=== PATIENT | male | born 1950 | race Asian ===

== ENCOUNTER 2020-08-28 09:08 | Inpatient (IN) | payer OTHER ==
[2020-08-28] MEDS ORDERED: methylPREDNISolone NA SUCC 125 MG/2 ML VIAL IVPUSH ONE (09:35)
[2020-08-28] MEDS ORDERED: SODIUM CHLORIDE 1,000 ML IV STA (09:39)
[2020-08-28 10:49] LABS: BASO % 1.4 % (0-2.0); EOS % 0.2 % (0-4.5); HEMATOCRIT 18.8 % (35.4-49); LYMPH % 18.9 % (8-40); MCH 31.8 pg (25.7-33.7); MCHC 34.3 g/dl (32.0-35.9); MEAN CELL VOLUME 92.7 fl (80-96); MEAN PLT VOLUME 8.7 fl (7.5-11.1); MONO % 26.5 % (3.8-10.2); PLATELET COUNT 51 K/MM3 (134-434); RBC 2.03 M/mm3 (4.00-5.60); RDW 19.7 % (11.9-15.9); WHITE BLOOD COUNT 4.7 K/mm3 (4.0-10.0)
[2020-08-28 10:52] LABS: INR 1.16 (0.83-1.09)
[2020-08-28 10:55] LABS: ACTIVATED PTT 30.9 SECONDS (25.2-36.5)
[2020-08-28 11:08] LABS: CALCIUM 7.9 mg/dL (8.5-10.1)
[2020-08-28 11:10] LABS: ALBUMIN 2.3 g/dl (3.4-5.0)
[2020-08-28 11:11] LABS: HEMOGLOBIN 6.4 GM/dL (11.7-16.9)
[2020-08-28 11:13] LABS: BILIRUBIN,TOTAL 0.9 mg/dL (0.2-1); TOT PROT 5.9 g/dl (6.4-8.2)
[2020-08-28 11:16] LABS: N-TERMINAL BNP 2303.6 pg/ml (5-125)
[2020-08-28] MEDS ORDERED: methylPREDNISolone NA SUCC 125 MG/2 ML VIAL ONE (13:32)
[2020-08-28 16:28] LABS: PH,URINE 5.5 (5.0-8.0); URINE APPEARANCE CLEAR; URINE BILIRUBIN NEGATIVE (NEGATIVE); URINE COLOR YELLOW; URINE GLUCOSE (UA) NEGATIVE (NEGATIVE); URINE KETONE 1+ (NEGATIVE); URINE LEUK ESTERASE NEGATIVE (NEGATIVE); URINE NITRITE NEGATIVE (NEGATIVE); URINE PROTEIN NEGATIVE (NEGATIVE); URINE UROBILINOGEN 0.2 mg/dL (0.2-1.0)
[2020-08-28] MEDS ORDERED: SODIUM CHLORIDE 1,000 ML IV SCH (17:45)
[2020-08-28] MEDS ORDERED: PANTOPRAZOLE 40 MG TABLET ONE (22:26)
[2020-08-28] MEDS: PANTOPRAZOLE 40 MG TABLET PO SCH (22:27)
[2020-08-29 08:09] LABS: ALBUMIN 2.4 g/dl (3.4-5.0); BILIRUBIN,TOTAL 1.4 mg/dl (0.2-1); CALCIUM 7.7 mg/dl (8.5-10); CREATININE 0.9 mg/dl (0.55-1.3); MAGNESIUM 1.8 mg/dL (1.8-2.4); PHOSPHOROUS 5.6 mg/dl (2.5-4.9); TOT PROT 5.7 g/dl (6.4-8.2)
[2020-08-29 08:19] LABS: BASO % 0.1 % (0-2.0); EOS % 0.1 % (0-4.5); HEMATOCRIT 28.5 % (35.4-49); HEMOGLOBIN 9.6 GM/dl (11.7-16.9); LYMPH % 9.9 % (8-40); MCH 31.3 pg (25.7-33.7); MCHC 33.9 g/dl (32.0-35.9); MEAN CELL VOLUME 92.3 fl (80-96); MEAN PLT VOLUME 9.2 fl (7.5-11.1); MONO % 17.8 % (3.8-10.2); NEUT % 72.1 % (42.8-82.8); PLATELET COUNT 44 K/MM3 (134-434); RBC 3.08 M/mm3 (4.00-5.60); RDW 20.3 % (11.9-15.9); WHITE BLOOD COUNT 4.7 K/mm3 (4.0-10.8)
[2020-08-29] MEDS ORDERED: FUROSEMIDE 40 MG/4 ML INJECTABLE VIAL IVPUSH ONE (09:45)
[2020-08-29] MEDS: PANTOPRAZOLE 40 MG TABLET PO SCH (10:12)
[2020-08-29 10:23] LABS: RETICULOCYTES 2.73 % (0.5-1.5)
[2020-08-29] MEDS ORDERED: RIVAROXABAN 20 MG TABLET PO SCH (10:30)
[2020-08-29 11:24] LABS: ANISOCYTOSIS 2+; MACROCYTOSIS 0; PLATELET ESTIMATE DECREASED
[2020-08-29] MEDS ORDERED: PT OWN MED DRAWER 7, Y5N ONE (12:03)
[2020-08-29] MEDS: BUDESONIDE/FORMETEROL FUMARATE 160/4.5 mcg INHALER IH SCH ×2 (12:08→21:36)
[2020-08-29] MEDS: PANTOPRAZOLE SODIUM 40 MG VIAL IVPUSH SCH (12:08)
[2020-08-29] MEDS: TAMSULOSIN HCL 0.4 MG CAP PO SCH (12:08)
[2020-08-29] MEDS: TIOTROPIUM BROMIDE 2.5 MCG (SPIRIVA) RESPIMAT INHALER IH SCH (12:08)
[2020-08-29] MEDS: CARVEDILOL 12.5 MG TABLET (FP) PO SCH ×2 (12:09→21:36)
[2020-08-29] MEDS ORDERED: DICLOFENAC POTASSIUM PO SCH (14:00)
[2020-08-29] MEDS: FLUTICASONE PROP 0.05% 16 GM NASAL SPRAY NS SCH (17:19)
[2020-08-29] MEDS: ATORVASTATIN CA 20 MG TABLET (FP) PO SCH (21:36)
[2020-08-29] MEDS ORDERED: SODIUM CHLORIDE 250 ML IV STA (23:26)
[2020-08-30] MEDS: traMADol HCL 50 MG TABLET PO PRN ×3 (01:57→21:02)
[2020-08-30] MEDS ORDERED: PT OWN MED DRAWER 7, Y5N ONE ×2 (09:23→12:46)
[2020-08-30] MEDS: CARVEDILOL 12.5 MG TABLET (FP) PO SCH ×3 (09:47→21:46)
[2020-08-30] MEDS: TAMSULOSIN HCL 0.4 MG CAP PO SCH (09:50)
[2020-08-30] MEDS ORDERED: PANTOPRAZOLE 40 MG TABLET PO SCH (10:00)
[2020-08-30] MEDS: PANTOPRAZOLE SODIUM 40 MG VIAL IVPUSH SCH (11:11)
[2020-08-30] MEDS: FLUTICASONE PROP 0.05% 16 GM NASAL SPRAY NS SCH (12:50)
[2020-08-30] MEDS: BUDESONIDE/FORMETEROL FUMARATE 160/4.5 mcg INHALER IH SCH ×2 (12:51→21:15)
[2020-08-30] MEDS: TIOTROPIUM BROMIDE 2.5 MCG (SPIRIVA) RESPIMAT INHALER IH SCH (12:51)
[2020-08-30] MEDS: ATORVASTATIN CA 20 MG TABLET (FP) PO SCH (21:02)
[2020-08-31] MEDS ORDERED: SODIUM CHLORIDE 1,000 ML IV STA (05:27)
[2020-08-31 06:34] LABS: BASO % 0.7 % (0-2.0); EOS % 0.3 % (0-4.5); HEMATOCRIT 25.9 % (35.4-49); HEMOGLOBIN 8.7 GM/dL (11.7-16.9); LYMPH % 20.8 % (8-40); MCH 31.1 pg (25.7-33.7); MCHC 33.7 g/dl (32.0-35.9); MEAN CELL VOLUME 92.1 fl (80-96); MEAN PLT VOLUME 9.1 fl (7.5-11.1); NEUT % 54.2 % (42.8-82.8); RBC 2.81 M/mm3 (4.00-5.60); RDW 21.6 % (11.9-15.9)
[2020-08-31 06:59] LABS: ALBUMIN 2.2 g/dl (3.4-5.0); BLOOD UREA NITROGEN 16.8 mg/dL (7-18); CALCIUM 7.3 mg/dL (8.5-10.1)
[2020-08-31 07:00] LABS: MAGNESIUM 1.8 mg/dL (1.8-2.4)
[2020-08-31 07:03] LABS: CREATININE 0.8 mg/dL (0.55-1.3)
[2020-08-31 07:04] LABS: BILIRUBIN,TOTAL 1.4 mg/dL (0.2-1); TOT PROT 5.4 g/dl (6.4-8.2)
[2020-08-31] MEDS: TAMSULOSIN HCL 0.4 MG CAP PO SCH (08:18)
[2020-08-31 10:37] LABS: ANISOCYTOSIS 0; MACROCYTOSIS 0; PLATELET ESTIMATE DECREASED; ROULEAU 1+
[2020-08-31] MEDS: CARVEDILOL 12.5 MG TABLET (FP) PO SCH ×2 (11:17→23:21)
[2020-08-31] MEDS: traMADol HCL 50 MG TABLET PO PRN (11:18)
[2020-08-31] MEDS: FLUTICASONE PROP 0.05% 16 GM NASAL SPRAY NS SCH (11:18)
[2020-08-31] MEDS: PANTOPRAZOLE SODIUM 40 MG VIAL IVPUSH SCH (11:18)
[2020-08-31] MEDS: BUDESONIDE/FORMETEROL FUMARATE 160/4.5 mcg INHALER IH SCH ×2 (11:18→23:22)
[2020-08-31] MEDS: TIOTROPIUM BROMIDE 2.5 MCG (SPIRIVA) RESPIMAT INHALER IH SCH (11:18)
[2020-08-31] MEDS: ACETAMINOPHEN 325 MG TABLET (FP) PO PRN (11:19)
[2020-08-31 11:55] LABS: PLATELET COUNT 27 K/MM3 (134-434)
[2020-08-31] MEDS ORDERED: KCL 10 MEQ IVPB 10 MEQ/100 ML INFUS.BAG IVPB SCH (12:15)
[2020-08-31] MEDS ORDERED: SODIUM CHLORIDE 500 ML IV STA (17:31)
[2020-08-31] MEDS: AMINO ACIDS 4.25%/D5W 1,000 ML IV SCH (19:45)
[2020-08-31] MEDS: ALLOPURINOL 300 MG TABLET (FP) PO SCH (19:46)
[2020-08-31] MEDS ORDERED: ACETAMINOPHEN 325 MG TABLET (FP) PO ONE (22:26)
[2020-08-31] MEDS: ATORVASTATIN CA 20 MG TABLET (FP) PO SCH (23:21)
[2020-09-01] MEDS ORDERED: SODIUM CHLORIDE 500 ML IV STA ×3 (02:02→09:16)
[2020-09-01 02:55] LABS: URINE APPEARANCE CLEAR; URINE BILIRUBIN SMALL (NEGATIVE); URINE COLOR DK YELLOW; URINE GLUCOSE (UA) NEGATIVE (NEGATIVE); URINE KETONE NEGATIVE (NEGATIVE)
[2020-09-01 02:56] LABS: PH,URINE 5.5 (5.0-8.0); URINE LEUK ESTERASE NEGATIVE (NEGATIVE); URINE NITRITE NEGATIVE (NEGATIVE); URINE PROTEIN TRACE (NEGATIVE); URINE RBC 9 /uL (0-23.9)
[2020-09-01 02:57] LABS: EPI CELLS 6 /uL (0-25.1); HYALINE CASTS 1 /uL (0-3.1); URINE BACTERIA 3 /uL (0-1359); URINE WBC 7 /uL (0-25.8)
[2020-09-01] MEDS ORDERED: SODIUM CHLORIDE 1,000 ML IV SCH (03:45)
[2020-09-01 04:45] LABS: BASO % 0.8 % (0-2.0); EOS % 0.2 % (0-4.5); HEMATOCRIT 22.4 % (35.4-49); HEMOGLOBIN 7.5 GM/dL (11.7-16.9); LYMPH % 19.7 % (8-40); MCH 31.1 pg (25.7-33.7); MCHC 33.6 g/dl (32.0-35.9); MEAN CELL VOLUME 92.7 fl (80-96); MEAN PLT VOLUME 9.5 fl (7.5-11.1); MONO % 24.2 % (3.8-10.2); NEUT % 55.1 % (42.8-82.8); RBC 2.42 M/mm3 (4.00-5.60); RDW 21.3 % (11.9-15.9); WHITE BLOOD COUNT 3.7 K/mm3 (4.0-10.0)
[2020-09-01 05:03] LABS: CHLORIDE 107 mmol/L (98-107); SODIUM 138 mmol/L (136-145)
[2020-09-01 05:05] LABS: PLATELET COUNT 22 K/MM3 (134-434)
[2020-09-01 05:06] LABS: ALBUMIN 1.9 g/dl (3.4-5.0); ANION GAP 6 MMOL/L (8-16); BLOOD UREA NITROGEN 17.7 mg/dL (7-18); CO2 26 mmol/L (21-32); GLUCOSE,RANDOM 130 mg/dL (74-106); MAGNESIUM 1.6 mg/dL (1.8-2.4)
[2020-09-01 05:09] LABS: CREATININE 0.8 mg/dL (0.55-1.3); SGOT/AST 143 U/L (15-37); SGPT/ALT 75 U/L (13-61); URIC ACID 4.6 mg/dL (2.6-7.2)
[2020-09-01 05:11] LABS: BILIRUBIN,TOTAL 1.3 mg/dL (0.2-1); TOT PROT 4.8 g/dl (6.4-8.2)
[2020-09-01 05:13] LABS: LDH 844 U/L (87-246)
[2020-09-01] MEDS ORDERED: POTASSIUM CHLORIDE TABS 20 MEQ TABLET.ER (FP) PO ONE (05:26)
[2020-09-01] MEDS ORDERED: MAGNESIUM OXIDE 400 MG TABLET (FP) PO ONE (05:26)
[2020-09-01] MEDS: ACETAMINOPHEN 325 MG TABLET (FP) PO PRN (06:26)
[2020-09-01 07:21] LABS: ALK PHOS 161 U/L (45-117)
[2020-09-01] MEDS ORDERED: VARENICLINE TARTRATE 1 MG TAB PO SCH (07:49)
[2020-09-01] MEDS ORDERED: ACETAMINOPHEN 325 MG TABLET (FP) PO PRN (07:49)
[2020-09-01 08:00] LABS: CALCIUM 6.8 mg/dL (8.5-10.1)
[2020-09-01 09:09] LABS: ANISOCYTOSIS 1+; MACROCYTOSIS 0; PLATELET ESTIMATE DECREASED
[2020-09-01] MEDS: TAMSULOSIN HCL 0.4 MG CAP PO SCH (09:18)
[2020-09-01] MEDS: PANTOPRAZOLE SODIUM 40 MG VIAL IVPUSH SCH (09:18)
[2020-09-01] MEDS: ALLOPURINOL 300 MG TABLET (FP) PO SCH (09:18)
[2020-09-01] MEDS ORDERED: CARVEDILOL 12.5 MG TABLET (FP) PO SCH (10:00)
[2020-09-01] MEDS: TIOTROPIUM BROMIDE 2.5 MCG (SPIRIVA) RESPIMAT INHALER IH SCH (10:06)
[2020-09-01] MEDS: FLUTICASONE PROP 0.05% 16 GM NASAL SPRAY NS SCH (10:06)
[2020-09-01] MEDS: BUDESONIDE/FORMETEROL FUMARATE 160/4.5 mcg INHALER IH SCH ×2 (10:07→21:29)
[2020-09-01] MEDS: CARVEDILOL 12.5 MG TABLET (FP) PO SCH ×2 (11:13→21:15)
[2020-09-01] MEDS ORDERED: VANCOMYCIN 1 GRAM (PRE-DOCKED) 1,000 MG/250 ML BAG IVPB ONE (12:30)
[2020-09-01] MEDS ORDERED: DEXTROSE 5%-WATER - 50 ML IVPB ONE (13:16)
[2020-09-01] MEDS ORDERED: PIPERACILLIN/TAZOBACTAM 3.375 GM VIAL IVPB ONE (13:16)
[2020-09-01] MEDS ORDERED: ACETAMINOPHEN 500 MG TABLET (FP) PO PRN (14:52)
[2020-09-01] MEDS ORDERED: ACETAMINOPHEN 500 MG TABLET (FP) PO ONE (15:18)
[2020-09-01] MEDS: PIPERACILLIN/TAZOB 3.375 GM 3.375 GM in DEXTROSE 5%-WATER - 50 ML IVPB SCH ×2 (15:25→18:20)
[2020-09-01] MEDS ORDERED: PANTOPRAZOLE SODIUM 40 MG in SODIUM CHLORIDE 100 ML IVPB SCH (15:45)
[2020-09-01] MEDS: AMINO ACIDS 4.25%/D5W 1,000 ML IV SCH (20:00)
[2020-09-01] MEDS: ATORVASTATIN CA 20 MG TABLET (FP) PO SCH (21:26)
[2020-09-02] MEDS ORDERED: PIPERACILLIN/TAZOBACTAM 3.375 GM VIAL IVPB ONE ×4 (02:02→23:48)
[2020-09-02] MEDS ORDERED: DEXTROSE 5%-WATER - 50 ML IVPB ONE ×4 (02:02→23:48)
[2020-09-02] MEDS: PIPERACILLIN/TAZOB 3.375 GM 3.375 GM in DEXTROSE 5%-WATER - 50 ML IVPB SCH ×3 (02:43→18:30)
[2020-09-02 07:33] LABS: BASO % 1.3 % (0-2.0); EOS % 0.4 % (0-4.5); HEMATOCRIT 22.9 % (35.4-49); HEMOGLOBIN 7.7 GM/dL (11.7-16.9); LYMPH % 17.7 % (8-40); MCH 30.9 pg (25.7-33.7); MCHC 33.6 g/dl (32.0-35.9); MEAN CELL VOLUME 92.1 fl (80-96); MEAN PLT VOLUME 8.9 fl (7.5-11.1); MONO % 20.7 % (3.8-10.2); NEUT % 59.9 % (42.8-82.8); RBC 2.49 M/mm3 (4.00-5.60); RDW 21.1 % (11.9-15.9)
[2020-09-02 07:37] LABS: WHITE BLOOD COUNT 3.9 K/mm3 (4.0-10.0)
[2020-09-02 07:41] LABS: CHLORIDE 106 mmol/L (98-107); SODIUM 137 mmol/L (136-145)
[2020-09-02 07:55] LABS: ANION GAP 7 MMOL/L (8-16); BLOOD UREA NITROGEN 11.3 mg/dL (7-18); CO2 24 mmol/L (21-32); GLUCOSE,RANDOM 90 mg/dL (74-106); MAGNESIUM 1.6 mg/dL (1.8-2.4)
[2020-09-02 07:56] LABS: SGPT/ALT 68 U/L (13-61)
[2020-09-02 07:58] LABS: BILIRUBIN,TOTAL 1.7 mg/dL (0.2-1); CREATININE 0.7 mg/dL (0.55-1.3); SGOT/AST 130 U/L (15-37); TOT PROT 5.1 g/dl (6.4-8.2)
[2020-09-02 08:00] LABS: ALK PHOS 187 U/L (45-117)
[2020-09-02 08:37] LABS: CALCIUM 6.8 mg/dL (8.5-10.1)
[2020-09-02 09:42] LABS: ANISOCYTOSIS 1+; MACROCYTOSIS 1+; PLATELET ESTIMATE DECREASED
[2020-09-02] MEDS: TAMSULOSIN HCL 0.4 MG CAP PO SCH (09:59)
[2020-09-02] MEDS: POTASSIUM CHLORIDE TABS 20 MEQ TABLET.ER (FP) PO ONE ×2 (10:00→10:19)
[2020-09-02] MEDS: ALLOPURINOL 300 MG TABLET (FP) PO SCH (10:00)
[2020-09-02] MEDS: CARVEDILOL 12.5 MG TABLET (FP) PO SCH ×2 (10:00→21:58)
[2020-09-02] MEDS: BUDESONIDE/FORMETEROL FUMARATE 160/4.5 mcg INHALER IH SCH ×2 (10:01→21:58)
[2020-09-02] MEDS: TIOTROPIUM BROMIDE 2.5 MCG (SPIRIVA) RESPIMAT INHALER IH SCH (10:01)
[2020-09-02] MEDS: FLUTICASONE PROP 0.05% 16 GM NASAL SPRAY NS SCH (10:02)
[2020-09-02] MEDS: PANTOPRAZOLE SODIUM 40 MG VIAL IVPUSH SCH (10:02)
[2020-09-02] MEDS ORDERED: PORTA CATH FLUSH 10 ML IVPUSH PRN (12:10)
[2020-09-02 13:08] LABS: TRANSGLUTAMINASE IGA < 2 U/mL (0-3); TRANSGLUTAMINASE IGG < 2 U/mL (0-5)
[2020-09-02 14:07] LABS: HEP B CORE AB, TOT Positive (Negative)
[2020-09-02 14:51] LABS: PLATELET COUNT 36 K/MM3 (134-434)
[2020-09-02] MEDS: AMINO ACIDS 4.25%/D5W 1,000 ML IV SCH (20:41)
[2020-09-02] MEDS: VARENICLINE TARTRATE 1 MG TAB PO SCH ×3 (20:42→20:54)
[2020-09-02] MEDS: ATORVASTATIN CA 20 MG TABLET (FP) PO SCH (21:58)
[2020-09-03] MEDS: PIPERACILLIN/TAZOB 3.375 GM 3.375 GM in DEXTROSE 5%-WATER - 50 ML IVPB SCH ×3 (02:44→17:33)
[2020-09-03] MEDS: AMINO ACIDS 4.25%/D5W 1,000 ML IV SCH (03:42)
[2020-09-03 07:46] LABS: BASO % 1.3 % (0-2.0); EOS % 0.6 % (0-4.5); HEMATOCRIT 21.8 % (35.4-49); HEMOGLOBIN 7.3 GM/dL (11.7-16.9); LYMPH % 20.4 % (8-40); MCHC 33.7 g/dl (32.0-35.9); MEAN PLT VOLUME 9.1 fl (7.5-11.1); MONO % 21.9 % (3.8-10.2); NEUT % 55.8 % (42.8-82.8); PLATELET COUNT 62 K/MM3 (134-434); RBC 2.37 M/mm3 (4.00-5.60); RDW 21.1 % (11.9-15.9); WHITE BLOOD COUNT 3.4 K/mm3 (4.0-10.0)
[2020-09-03 07:54] LABS: CHLORIDE 102 mmol/L (98-107); SODIUM 136 mmol/L (136-145)
[2020-09-03 08:02] LABS: BLOOD UREA NITROGEN 14.1 mg/dL (7-18); CO2 26 mmol/L (21-32); GLUCOSE,RANDOM 99 mg/dL (74-106); SGOT/AST 138 U/L (15-37); SGPT/ALT 66 U/L (13-61)
[2020-09-03 08:03] LABS: BILIRUBIN,TOTAL 1.6 mg/dL (0.2-1); CALCIUM 7.2 mg/dL (8.5-10.1); MAGNESIUM 1.8 mg/dL (1.8-2.4); TOT PROT 5.2 g/dl (6.4-8.2)
[2020-09-03 08:05] LABS: CREATININE 0.7 mg/dL (0.55-1.3)
[2020-09-03 08:13] LABS: ALK PHOS 230 U/L (45-117); ANION GAP 8 MMOL/L (8-16)
[2020-09-03] MEDS ORDERED: SODIUM CHLORIDE 500 ML IV STA (08:46)
[2020-09-03] MEDS ORDERED: PIPERACILLIN/TAZOBACTAM 3.375 GM VIAL IVPB ONE ×2 (09:23→17:14)
[2020-09-03] MEDS ORDERED: DEXTROSE 5%-WATER - 50 ML IVPB ONE ×2 (09:23→17:15)
[2020-09-03] MEDS ORDERED: PT OWN MED DRAWER 7, Y5N ONE (09:25)
[2020-09-03] MEDS: PANTOPRAZOLE SODIUM 40 MG VIAL IVPUSH SCH (10:18)
[2020-09-03] MEDS: CARVEDILOL 12.5 MG TABLET (FP) PO SCH ×2 (10:18→21:44)
[2020-09-03] MEDS: ALLOPURINOL 300 MG TABLET (FP) PO SCH (10:18)
[2020-09-03] MEDS: ENTECAVIR 0.5 MG TABLET PO SCH (10:18)
[2020-09-03] MEDS: TAMSULOSIN HCL 0.4 MG CAP PO SCH (10:19)
[2020-09-03] MEDS: KCL 10 MEQ IVPB 10 MEQ/100 ML INFUS.BAG IVPB SCH ×3 (10:19→16:34)
[2020-09-03] MEDS: BUDESONIDE/FORMETEROL FUMARATE 160/4.5 mcg INHALER IH SCH ×2 (10:21→21:45)
[2020-09-03] MEDS: FLUTICASONE PROP 0.05% 16 GM NASAL SPRAY NS SCH (10:21)
[2020-09-03] MEDS: TIOTROPIUM BROMIDE 2.5 MCG (SPIRIVA) RESPIMAT INHALER IH SCH (10:22)
[2020-09-03] MEDS: predniSONE 20 MG TABLET (UD) PO SCH (15:39)
[2020-09-03] MEDS: traMADol HCL 50 MG TABLET PO PRN (21:05)
[2020-09-03] MEDS: ATORVASTATIN CA 20 MG TABLET (FP) PO SCH (21:44)
[2020-09-04] MEDS ORDERED: DEXTROSE 5%-WATER - 50 ML IVPB ONE ×3 (02:42→17:44)
[2020-09-04] MEDS ORDERED: PIPERACILLIN/TAZOBACTAM 3.375 GM VIAL IVPB ONE ×3 (02:42→17:44)
[2020-09-04] MEDS: PIPERACILLIN/TAZOB 3.375 GM 3.375 GM in DEXTROSE 5%-WATER - 50 ML IVPB SCH ×3 (03:02→17:55)
[2020-09-04] MEDS: AMINO ACIDS 4.25%/D5W 1,000 ML IV SCH ×3 (03:16→22:40)
[2020-09-04 08:00] LABS: BASO % 0.8 % (0-2.0); HEMATOCRIT 21.4 % (35.4-49); HEMOGLOBIN 7.2 GM/dL (11.7-16.9); LYMPH % 17.2 % (8-40); MCH 31.1 pg (25.7-33.7); MCHC 33.8 g/dl (32.0-35.9); MEAN CELL VOLUME 91.8 fl (80-96); MEAN PLT VOLUME 9.4 fl (7.5-11.1); MONO % 20.7 % (3.8-10.2); NEUT % 61.3 % (42.8-82.8); PLATELET COUNT 45 K/MM3 (134-434); RBC 2.33 M/mm3 (4.00-5.60); RDW 20.3 % (11.9-15.9); WHITE BLOOD COUNT 3.2 K/mm3 (4.0-10.0)
[2020-09-04 08:29] LABS: ALBUMIN 1.9 g/dl (3.4-5.0); CALCIUM 7.3 mg/dL (8.5-10.1)
[2020-09-04 08:30] LABS: BLOOD UREA NITROGEN 16.9 mg/dL (7-18); MAGNESIUM 1.9 mg/dL (1.8-2.4)
[2020-09-04 08:32] LABS: CREATININE 0.6 mg/dL (0.55-1.3)
[2020-09-04 08:33] LABS: BILIRUBIN,TOTAL 1.3 mg/dL (0.2-1)
[2020-09-04 08:34] LABS: TOT PROT 5.3 g/dl (6.4-8.2)
[2020-09-04] MEDS ORDERED: DEXAMETHASONE 4 MG TABLET (FP) PO SCH (10:15)
[2020-09-04] MEDS: CARVEDILOL 12.5 MG TABLET (FP) PO SCH ×2 (10:17→22:40)
[2020-09-04 10:29] LABS: URIC ACID 1.4 mg/dL (2.6-7.2)
[2020-09-04] MEDS: TAMSULOSIN HCL 0.4 MG CAP PO SCH (10:34)
[2020-09-04] MEDS: ALLOPURINOL 300 MG TABLET (FP) PO SCH (10:35)
[2020-09-04] MEDS: ENTECAVIR 0.5 MG TABLET PO SCH (10:36)
[2020-09-04] MEDS: BUDESONIDE/FORMETEROL FUMARATE 160/4.5 mcg INHALER IH SCH ×2 (10:36→22:57)
[2020-09-04] MEDS ORDERED: PT OWN MED DRAWER 7, Y5N ONE (10:36)
[2020-09-04] MEDS: TIOTROPIUM BROMIDE 2.5 MCG (SPIRIVA) RESPIMAT INHALER IH SCH (10:36)
[2020-09-04] MEDS: FLUTICASONE PROP 0.05% 16 GM NASAL SPRAY NS SCH (10:36)
[2020-09-04] MEDS: PANTOPRAZOLE SODIUM 40 MG VIAL IVPUSH SCH (10:42)
[2020-09-04 10:43] LABS: ANISOCYTOSIS 1+; MACROCYTOSIS 0; PLATELET ESTIMATE DECREASED
[2020-09-04] MEDS: predniSONE 20 MG TABLET (UD) PO SCH (10:52)
[2020-09-04] MEDS: NYSTATIN 500,000 UNITS/5 ML SUSPENSION PO SCH ×2 (13:13→17:54)
[2020-09-04] MEDS ORDERED: POTASSIUM CHLORIDE ORAL LIQUID 20 MEQ/15 ML PO ONE (15:53)
[2020-09-04] MEDS ORDERED: SODIUM CHLORIDE 1,000 ML IV SCH (16:00)
[2020-09-04] MEDS: ATORVASTATIN CA 20 MG TABLET (FP) PO SCH (22:40)
[2020-09-04] MEDS: traMADol HCL 50 MG TABLET PO PRN (22:40)
[2020-09-04] MEDS ORDERED: ENTECAVIR 0.5 MG TABLET PO SCH (23:26)
[2020-09-05] MEDS ORDERED: DEXTROSE 5%-WATER - 50 ML IVPB ONE (01:58)
[2020-09-05] MEDS ORDERED: PIPERACILLIN/TAZOBACTAM 3.375 GM VIAL IVPB ONE (01:58)
[2020-09-05] MEDS: NYSTATIN 500,000 UNITS/5 ML SUSPENSION PO SCH (01:59)
[2020-09-05] MEDS: PIPERACILLIN/TAZOB 3.375 GM 3.375 GM in DEXTROSE 5%-WATER - 50 ML IVPB SCH (01:59)
[2020-09-05 04:18] VITALS: TEMP 99.5
[2020-09-05] MEDS ORDERED: SODIUM CHLORIDE 500 ML IV STA (04:29)
[2020-09-05 05:18] VITALS: BP 90/57; PULSE 81
[2020-09-05 12:04] LABS: FREE KAPPA,SERUM 47.1 mg/L (3.3-19.4)
[2020-09-05 12:34] VITALS: BMI 18.4
== END 2020-09-05 04:39 | disposition short-term general hospital (02) | DRG 841 ==
LOC: JER 09:08 → JERBED 15:35 → FM/S 08-29 00:29 → J4W 08-30 01:52
PROVIDERS: ADMIT Internal Medicine; ATTEND Nurse Practitioner Acute Care
PROC: 07DR3ZX Extraction of Iliac Bone Marrow, Percutaneous Approach, Diagnostic (ICD-10-PCS; principal; 2020-09-03)
PROC: 02HV33Z Insertion of Infusion Device into Superior Vena Cava, Percutaneous Approach (ICD-10-PCS; 2020-09-03)
PROC: B518ZZA Fluoroscopy of Superior Vena Cava, Guidance (ICD-10-PCS; 2020-09-03)
DX: C85.14 Unspecified B-cell lymphoma, lymph nodes of axilla and upper limb (principal); C79.51 Secondary malignant neoplasm of bone; I24.8 Other forms of acute ischemic heart disease; E87.1 Hypo-osmolality and hyponatremia; B37.0 Candidal stomatitis; B16.9 Acute hepatitis B without delta-agent and without hepatic coma; D61.818 Other pancytopenia; R64 Cachexia; Z68.1 Body mass index [BMI] 19.9 or less, adult; D63.0 Anemia in neoplastic disease; J44.9 Chronic obstructive pulmonary disease, unspecified; F17.210 Nicotine dependence, cigarettes, uncomplicated; J45.909 Unspecified asthma, uncomplicated; I10 Essential (primary) hypertension; R13.10 Dysphagia, unspecified; R59.0 Localized enlarged lymph nodes; I95.9 Hypotension, unspecified; E83.42 Hypomagnesemia; D72.819 Decreased white blood cell count, unspecified; E87.6 Hypokalemia
CPT/HCPCS: 20225; 36415; 36430; 36569; 70450-TC; 70491-TC; 71045-TC-FY; 71275-TC; 72125-TC; 72128-TC; 72170-TC-FY; 74177-TC; 74230-TC-FY; 76700-TC; 77001-TC-FY; 77012-TC; 80053; 81003; 82105; 82272; 82378; 82550; 82607; 82728; 82747; 82784; 82977; 83516; 83540; 83550; 83605; 83615; 83735; 83880; 83883; 84100; 84132; 84153; 84155; 84165; 84439; 84443; 84484; 84550; 84702; 85014; 85025; 85032; 85045; 85379; 85610; 85730; 86140; 86334; 86704; 86706; 86707; 86708; 86709; 86803; 86850; 86880; 86900; 86901; 86922; 87040; 87070; 87086; 87186; 87205; 87340; 87517; 87804; 87899; 88300-TC; 88305-TC; 88311-TC; 88313-TC; 92611-GN; 93005; 93010; 93306-TC; 97116-GP; 97162-GP; 99285-25; C1751; C9803; P9034; P9058; Q9967; U0003; U0005